=== PATIENT | male | born 1930 | race Two or more races ===

== ENCOUNTER 2017-04-16 12:56 | Emergency (ER) | payer OTHER, MEDICAID ==
[~2017-04-16] VITALS: Ht 167.6 cm; Wt 79.4 kg
[~2017-04-16 12:56] MED LIST: ASPIR 8181 MG PO; COL100 PO; DICLOFENAC SOD75 M1 PO; FER300 PO; FERROUS SULFAT325 M2 PO; FINASTERIDE5 M1 PO; METP PO; OMEPRAZOLE D/R20 M1 PO; ZORVOLEX18 MG PO
[2017-04-16 14:32] LABS: BASOPHIL % 0.5 % (0-2); PLATELET COUNT 189 x10^3mcL (130-400)
[2017-04-16 14:34] LABS: CALCIUM 9.6 mg/dL (8.5-10.1); CARBON DIOXIDE 29.7 mmol/L (21-32); CHLORIDE SERUM 103 mmol/L (98-107); CREATININE SERUM 0.8 mg/dL (0.7-1.3); GLUCOSE SERUM 117 mg/dL (74-106); POTASSIUM SERUM 4.4 mmol/L (3.5-5.1); RED CELL DISTRIBUTION WIDTH 15.2 % (11.5-14.5); SODIUM SERUM 135 mmol/L (136-145)
[2017-04-16 14:41] LABS: ALBUMIN 3.5 g/dL (3.4-5.0); ALKALINE PHOSPHATASE 102 U/L (46-116); ALT/SGPT 24 U/L (16-63); AST/SGOT 23 U/L (15-37); BILIRUBIN TOTAL 0.5 mg/dL (0.20-1.00); CHOLESTEROL 170 mg/dL (<200); CHOLESTEROL/HDL RATIO 2.7; HDL CHOLESTEROL 64 mg/dL (40-60); LIPASE 165 IU/L (73-393); TOTAL PROTEIN, SERUM 7.9 g/dL (6.4-8.2); TRIGLYCERIDES 72 mg/dL (<150)
[2017-04-16 14:47] LABS: microscopic required? NO
[2017-04-16 15:01] LABS: FREE THYROXINE INDEX 2.6 ug/dL (1.4-4.5); T4(THYROXINE) 6.4 ug/dL (4.7-13.3)
[2017-04-16 15:02] LABS: T3 TOTAL 0.87 ng/mL
[2017-04-16 15:13] LABS: UA SPECIFIC GRAVITY <=1.005 (1.005-1.035); urine erythrocyte NEGATIVE (NEGATIVE)
[2017-04-16 17:18] VITALS: BP 119/73
== END 2017-04-16 17:53 | disposition home or self-care (01) ==
LOC: ED 12:56
PROVIDERS: Specialist
DX: I10 Essential (primary) hypertension (principal); R51 Headache; Z88.0 Allergy status to penicillin; Z79.899 Other long term (current) drug therapy
CPT/HCPCS: 83880; 84439; J3490

== ENCOUNTER 2018-03-05 22:04 | Emergency (ER) | payer OTHER, MEDICAID ==
[~2018-03-05] VITALS: Ht 160 cm; Wt 86.2 kg
[2018-03-05 22:15] VITALS: Ht 160 cm; Wt 86.2 kg
[2018-03-05 23:56] VITALS: BP 147/96
== END 2018-03-05 23:56 | disposition home or self-care (01) ==
LOC: ED 22:04
DX: I16.9 Hypertensive crisis, unspecified (principal)